=== PATIENT | female | born 1975 | race Asian ===

== ENCOUNTER 2019-07-19 21:06 | Emergency (ER) | payer OTHER ==
[~2019-07-19] VITALS: Ht 162.6 cm; Wt 54.4 kg
== END 2019-07-20 00:46 | disposition home or self-care (01) ==
LOC: ER 21:06
DX: S91.352A Open bite, left foot, initial encounter (principal); W54.0XXA Bitten by dog, initial encounter; Y93.89 Activity, other specified; Y92.89 Other specified places as the place of occurrence of the external cause; Y99.8 Other external cause status